=== PATIENT | female | born 1960 | race Caucasian/White ===

== ENCOUNTER → 2025-02-20 10:39 | Outpatient (CLI) | payer OTHER, SELFPAY ==
--- NOTE | 2025-02-20 10:51 | DI.RAD.S_ITS ---
PROCEDURE: XR HIP W PEL IF DONE BILAT 2V INDICATIONS: PAIN IN LEFT HIP TECHNIQUE: AP pelvis with lateral view(s) of the bilateral hip(s). COMPARISON: None. FINDINGS: Bones: No fractures or dislocations. Pelvic ring appears intact. No suspicious bony lesions. Soft tissues: The visualized bowel gas pattern is normal. No suspicious soft tissue calcifications. IMPRESSION: No acute bony abnormality. Dictated by: Neville Guevara M.D. on 02/21/2025 at 5:12 Approved by: Neville Guevara M.D. on 02/21/2025 at 5:13
== END ==
PROVIDERS: Referring Provider Naturopath; Visit Provider Naturopath
DX: M25.552 Pain in left hip (principal); M53.3 Sacrococcygeal disorders, not elsewhere classified
CPT/HCPCS: 73521